=== PATIENT | female | born 1950 | race Caucasian/White ===

== ENCOUNTER 2016-09-06 09:39 | Outpatient (CLI) | payer MEDICARE, OTHER | END 2016-09-06 09:40 | disposition home or self-care (01) | DX: Z12.31 Encounter for screening mammogram for malignant neoplasm of breast (principal); Z98.82 Breast implant status ==

== ENCOUNTER 2016-09-06 09:43 | Outpatient (CLI) | payer MEDICARE, BC | END 2016-09-06 09:44 | disposition home or self-care (01) | DX: Z13.820 Encounter for screening for osteoporosis (principal); M85.89 Other specified disorders of bone density and structure, multiple sites ==

== ENCOUNTER 2016-09-14 07:47 | Outpatient (CLI) | payer MEDICARE, BC | END 2016-09-14 07:48 | disposition home or self-care (01) | DX: Z00.00 Encounter for general adult medical examination without abnormal findings (principal) ==

== ENCOUNTER 2017-01-03 08:14 | Day surgery (SDC) | payer MEDICARE, BC ==
[2017-01-03] MEDS ORDERED: LACTATED RINGERS 1,000 ML IV ONE (08:21)
[2017-01-03] MEDS ORDERED: MIDAZOLAM 2 MG/2 ML VIAL IVP ONE (08:58)
[2017-01-03] MEDS ORDERED: fentaNYL 100 MCG/2 ML VIAL IVP ONE (08:58)
[2017-01-03 09:57] VITALS: BP 101/70
== END 2017-01-03 08:15 | disposition home or self-care (01) ==
LOC: SDS 08:14
PROVIDERS: ATTEND Surgery
PROC: 0DBK8ZX Excision of Ascending Colon, Via Natural or Artificial Opening Endoscopic, Diagnostic (ICD-10-PCS; principal; 2017-01-03 09:15)
DX: Z12.11 Encounter for screening for malignant neoplasm of colon (principal); D12.2 Benign neoplasm of ascending colon; K57.90 Diverticulosis of intestine, part unspecified, without perforation or abscess without bleeding; Z79.82 Long term (current) use of aspirin
CPT/HCPCS: 45380; J7120

== ENCOUNTER 2018-02-26 10:28 | Outpatient (CLI) | payer MEDICARE, OTHER ==
--- NOTE | 2018-02-27 09:16 | Mammography Report ---
Reason: SCREENING MAMMO Procedure Date: 02/26/2018 Accession Number: [id number] / [id number] Procedure: MGN - Screening Mammo Dig w/Implants CPT Code: FULL RESULT: EXAM: Screening Mammo Dig w/Implants DATE: 02/26/2018 11:01 AM CLINICAL HISTORY: 67-year-old female with history of breast augmentation with saline implants. TECHNIQUE: Bilateral CC and MLO views were obtained. Implant displaced views were also obtained bilaterally in both projections. COMPARISON: 09/06/2016, 02/04/2015, 03/26/2013, 09/16/2011. FINDINGS: The breasts demonstrate heterogeneously dense fibroglandular parenchyma bilaterally. Bilateral retropectoral breast implants are again seen. No suspicious masses, clustered microcalcifications, or regions of architectural distortion are identified. IMPRESSION: Benign findings RECOMMENDATION: Routine annual screening unless otherwise clinically indicated. BIRADS CATEGORY 2: Benign findings STANDARD QUALIFYING STATEMENTS: 1. This examination was reviewed with the aid of Computer-Aided Detection (CAD). 2. A negative or benign imaging report should not delay biopsy if clinically suspicious findings are present. Consider surgical consultation if warrented. More than 5% of cancers are not identified by imaging. 3. Dense breasts may obscure an underlying neoplasm. 4. This examination was reviewed without the aid of 3D breast imaging (tomosynthesis).
== END 2018-02-26 10:29 | disposition home or self-care (01) ==
LOC: DI.N 10:28
DX: Z12.31 Encounter for screening mammogram for malignant neoplasm of breast (principal); Z98.82 Breast implant status
CPT/HCPCS: 77067

== ENCOUNTER 2019-01-29 10:47 | Outpatient (CLI) | payer MEDICARE, OTHER ==
--- NOTE | 2019-01-29 12:06 | XRAY Report ---
Reason: CHEST PAIN Procedure Date: 01/29/2019 Accession Number: [id number] / [id number] Procedure: WCP - Chest 2 View X-Ray CPT Code: 85540 FULL RESULT: EXAM: CHEST RADIOGRAPHY EXAM DATE: 01/29/2019 10:47 AM. CLINICAL HISTORY: CHEST PAIN. COMPARISON: None. TECHNIQUE: 2 views. FINDINGS: Lungs/Pleura: No significant abnormality. Tiny right basilar calcified granuloma. Lungs otherwise clear. Mediastinum: Heart and mediastinal contours are unremarkable. Other: None. IMPRESSION: 1. Old granulomatous disease. 2. Otherwise negative examination. RADIA
== END 2019-01-29 23:59 | disposition home or self-care (01) ==
LOC: DI.WCP 10:47 → EDSTATUS 12:33 → DI.WCP 23:59
PROVIDERS: ATTEND Physician Assistant Medical
DX: R07.89 Other chest pain (principal)
CPT/HCPCS: 71046

== ENCOUNTER 2022-10-25 10:27 | Outpatient (CLI) | payer MEDICARE, OTHER ==
--- NOTE | 2022-10-26 10:25 | Mammography Report ---
BILATERAL DIGITAL SCREENING MAMMOGRAM 3D/2D WITH AUGMENTATION: 10/25/2022 CLINICAL: Routine screening. Comparison is made to exams dated: 02/26/2018 mammogram, 09/06/2016 mammogram, 02/04/2015 mammogram - [facility], 03/26/2013 mammogram - [facility], 09/22/2011 [facility], and 09/16/2011 mammogram - [facility]. Both breasts are heterogeneously dense, which may obscure small masses (category c / 51-75% glandular tissue). Bilateral breast implants are present. No significant masses, calcifications, or other findings are seen in either breast. There has been no significant interval change. IMPRESSION: NEGATIVE There is no mammographic evidence of malignancy. A 1 year screening mammogram is recommended. Based on the Tyrer Cuzick model (a risk assessment model) the patients lifetime risk is 5.7% and her 10 year risk is 4.7%. According to the ACR, ACS, and NCCN guidelines, an annual breast MRI exam princess g with mammogram is recommended if the patients lifetime risk is 20% or greater. This exam was interpreted at Station ID: [id number]. NOTE: For mammograms, a report in lay terms will be sent to the patient. Approximately 15% of breast malignancies will not be visualized mammographically. In the management of a palpable breast mass, a negative mammogram must not discourage biopsy of a clinically suspicious lesion. Electronically Signed By: Michael mcbride/marcia:10/25/2022 20:16:31 letter sent: No_Letter ACR BI-RADS Category 1: Negative 3341F PARENCHYMAL PATTERN: (D) - The breast(s) demonstrate(s) heterogeneously dense fibroglandular parpola ma. BI-RADS CATEGORY: (1) - 1 Mammogram [id number] 1 year screening LATERALITY: (B)
== END 2022-10-25 10:28 | disposition home or self-care (01) ==
LOC: DI.N 10:27
DX: Z12.31 Encounter for screening mammogram for malignant neoplasm of breast (principal)

== ENCOUNTER 2022-11-23 09:38 | Outpatient (CLI) | payer MEDICARE, OTHER ==
--- NOTE | 2022-11-23 17:55 | DEXA Report ---
PROCEDURE: Dexa Spine and/or Hip INDICATIONS: POST MENOPAUSAL TECHNIQUE: Dual energy x-ray absorptiometry (DXA) was performed on a Syrmo System. Regions measur ed are the AP Spine, femoral neck, and if needed forearm. COMPARISON: 09/06/2016 FINDINGS: Lumbar Spine: Bone Mineral Density 0.881 g/cm/cm,T score -2.5. Previously -1.7 Left Femoral Neck: Bone Mineral Density 0.771 g/cm/cm, T score -1.9. Previously -1.5 Left Hip: Bone Mineral Density 0.841 g/cm/cm,T score -1.3. Previously -0.8 (T score greater or equal to -1.0: NORMAL) (T score from -1.1 to -2.4: OSTEOPENIA) (T score less than or equal to -2.5 to: OSTEOPOROSIS) Impression: By WHO criteria, this patient has osteopenia with decreasing mineralization of the spine and proximal left femur Patients with diagnosis of osteoporosis or osteopenia should have regular bone mineral density assess ment. For those eligible for Medicare, routine testing is allowed once every 2 years. Testing frequ ency can be increased for patients who have rapidly progressing disease or for those who are receivin g medical therapy to restore bone mass. Reviewed by: James Yen MD on 11/23/2022 4:53 PM [facility] Approved by: James Yen MD on 11/23/2022 4:53 PM [facility] Station ID: [id number]
== END 2022-11-23 09:39 | disposition home or self-care (01) ==
LOC: DI 09:38
PROVIDERS: ATTEND Physician Assistant Medical
DX: Z78.0 Asymptomatic menopausal state (principal); M85.80 Other specified disorders of bone density and structure, unspecified site

== ENCOUNTER 2024-02-07 12:11 | Observation (INO) ==
--- NOTE | 2024-02-07 12:03 | ED Physician Documentation ---
History of Present Illness Stated complaint Stated Complaint: VERTIGO Chief complaint Chief Complaint: Neuro Additonal information Additional information: 73-year-old female who denies substantial medical history presents with continuous vertigo. This started about 10 AM today. She has had vertigo and nausea and vomiting since then, with mild headache. She denies any recent head trauma. No visual changes. No current hearing changes, though she has chronic tinnitus bilaterally. She had a similar episode a few years ago that resolved quickly and was mild, and she did not see a doctor for this. No history of stroke or TIA. No blood thinners. No aspirin taken. No neck or chest or back or abdominal or flank pain, shortness of breath, syncope, palpitations, or other new concerns. No history of easy bleeding. No recent surgeries. Spouse arrived during my assessment and corroborates. I am immediately calling a code stroke on assessment of this patient. EMS brought patient and gave Zofran en route. Review of Systems ROS Constitutional: no fever, no chills Eyes: no visual disturbance, no discharge Ears, Nose, Mouth, Throat: no rhinorrhea, no sore throat Cardiovascular: no chest pain, no palpitations Respiratory: no cough, no shortness of breath Gastrointestinal: no abdominal pain, + vomiting, no diarrhea Genitourinary: no dysuria, no hematuria Musculoskeletal: no back pain, no neck stiffness Skin: no rash, no wound Neurological: no focal weakness, no focal numbness Meds/Allgy Home Medications Ambulatory Orders Medication Instructions Recorded Confirmed No Known Home Medications 02/07/24 02/07/24 Allergies Allergies Allergy/AdvReac Type Severity Reaction Status Date / Time Iodinated Contrast Media AdvReac Edema Verified 02/07/24 13:13 (Iodinated Contrast- Oral and IV Dye) REPLACED BY [facility] Medical History Medical History (Updated 02/07/24 @ 14:52 by Grayson Ruffin MD) No pertinent past medical history Surgical History Surgical History (Updated 02/07/24 @ 12:21 by Izabela Hodge, RN, BSN) No pertinent past surgical history Social History Social History (Updated 02/07/24 @ 12:21 by Izabela Hodge, SHELBIE, BSN) Smoking Status: Never smoker Do you dip or chew tobacco?: No Relationship: Do you feel safe in your home environment?: Yes Suffered physical, verbal, emotional, or financial abuse?: No Exam Exam Const: no acute distress though intermittently nauseous, prefers keeping eyes closed; non toxic appearing; remains pleasant Eyes: PERRLA, EOMI; left beating horizontal nystagmus however also faint torsional R sided nystagmus ENT: mucous membranes moist Neck: supple, non-tender Resp: no respiratory distress, clear to auscultation bilaterally Card: regular mild bradycardia, no murmurs Abd: non tender diffusely, no rigidity or rebound or guarding Back: no T or L spine tenderness, no CVA tenderness bilaterally Extrem: no deformities, no swelling bilateral lower etremities, 2+ distal pulses all extremities Neuro: ANOx4. country manager 2-12 intact; nystagmus noted above. Normal tone all extremities. Sensation intact to light touch all extremities. No ankle clonus bilaterally. 5/5 motor strength all extremities. Normal FNF BUE; normal heel- pendleton test BLE. Possible mild LUE pronator drift. No dysarthria. No neglect. Grossly normal cognition. Skin: no rash, warm and dry NIHSS is currently 0 Results Vitals Vitals: Vital Signs - 24 hr 02/07/24 12:12 02/07/24 13:05 Temperature 36.5 C Pulse Rate 58 L 56 L Respiratory Rate 15 17 Blood Pressure 143/78 H 132/61 H O2 Saturation 100 99 O2 Source Room air Room air Pain Intensity 0 Oxygen O2 Source Room air Labs Labs: Laboratory Tests 02/07/24 12:35 WBC 9.7 RBC 4.88 Hgb 14.4 Hct 42.3 MCV 86.7 MCH 29.5 MCHC 34.0 RDW 11.6 L Plt Count 253 MPV 9.1 Neut # (Auto) 7.9 H Lymph # (Auto) 1.2 L [place] # (Auto) 0.5 Eos # (Auto) 0.0 Baso # (Auto) 0.0 Absolute Nucleated RBC 0.00 Nucleated RBC % 0.0 PT 11.5 INR 1.1 APTT 19.0 L Sodium 138 Potassium 4.3 Chloride 104 Carbon Dioxide 24 Anion Gap 10.0 BUN 22 H Creatinine 0.9 Estimated GFR (MDRD) 61 L Glucose 135 H Calcium 9.7 Total Bilirubin 0.7 AST 18 ALT 14 Alkaline Phosphatase 66 Troponin I High Sens 11.9 Total Protein 6.7 Albumin 4.2 Globulin 2.5 Albumin/Globulin Ratio 1.7 PD Medical Decision Making ED course ED course: This patient presents with continuous vertigo that is concerning for possible acute ischemic stroke, though I have considered a broad differential including but not limited to hemorrhagic stroke, vascular dissection, BPPV, laryngitis, vertebrobasilar stenosis, migraine, among others. No chest pain. NIHSS is 0 but this does not target posterior strokes. I am immediately initiating code stroke workup, with CT head, CT head and neck, EKG, labs. I am giving fluids, Zofran, meclizine and will closely reassess. Neurology being consulted. Note patient notes possible contrast allergy; this does NOT appear anaphylactic per her history, and may in fact have been IV extravasation per her description, but due to uncertainty we will give Solumedrol/Bendaryl now while obtaining hCT, then return for CTA after this pretreatment. I spoke with Dr. Santana of [employer] [facility] at 1232, reviewing case; he will assess as well via robot. Radiologist called me and states hCT without acute findings. EKG normal sinus rhythm without acute ischemia or immediately concerning interval prolongation. CT: I agree with radiology reads of imaging on my independent review of imaging. hCT: "FINDINGS: Image quality: Excellent. CSF spaces: Basal cisterns are patent. No extra-axial fluid collections. Ventricles are normal in size and shape. Brain: No midline shift. No intracranial masses or hemorrhage. Lui-white matter interface is normal. Skull and face: Calvarium and visualized facial bones are intact, without suspicious lesions. Sinuses: Visualized sinuses and mastoids are clear. IMPRESSION: 1. No acute intracranial process. The above findings were discussed with Dr. Grayson Ruffin on 02/07/2024 at 12:50 PM This study fulfills neurological imaging criteria for inclusion or exclusion of acute stroke therapies based on available published neurological imaging guidelines. Reviewed by: Tara Hudson MD on 02/07/2024 12:51 PM PDT" Dr. Santana has also assessed patient in room. She has had CLEAR symptomatic improvement, and is now able to ambulate. Stroke is still possible, but both Neurologist and patient/family do NOT feel risk of TNK outweighs benefits at this time. I agree. We are giving full aspirin, statin, completing CTA, then antiicpate admit for MRI tomorrow and PT/OT as per Neurology recommendations. Labs: CBC reassuring, no leukocytosis, anemia or thrombocytopenia. INR WNL. PTT low. CBC, CMP reassuring. Troponin reassuring in clinical context. No chest pain. Patient remains stable, improved; given her clear improvement and minimal symptoms, I continue to agree risk of thrombolytics outweighs benefits at this, which patient/family also strongly feel. CTA head/neck: I agree with radiology read below "FINDINGS: Image quality: Diagnostic. HEAD CT: See CTA head report of 02/07/2024. HEAD CT ANGIOGRAPHY: Anterior circulation: Intracranial internal carotid arteries are normal in size and flow. The flow within the paired anterior cerebral arteries is normal and symmetric. The flow within the middle cerebral arteries is normal and symmetric. The anterior communicating artery is seen. No aneurysms are seen. Posterior circulation: Visualized portions of the vertebral arteries demonstrate normal caliber, and join to form a normal appearing basilar artery. Flow within the posterior cerebral arteries is normal and symmetric. No aneurysms are seen. NECK CT ANGIOGRAPHY: Carotid system: The great vessels demonstrate a conventional anatomy as they arise from the aortic arch. The origins of the common carotid arteries appear patent. The common carotid arteries demonstrate normal caliber and courses. The bifurcation regions are both widely patent. The internal carotid arteries demonstrate normal calibers and courses. Posterior circulation: The origins of the vertebral arteries both appear widely patent. The more superior extracranial portions of both vertebral arteries also demonstrate normal courses and calibers. They join to form a normal appearing basilar artery. Soft tissues: Visualized neck soft tissues demonstrate no suspicious abnormalities. Bones: No suspicious bony lesions. Visualized cervical spine appears normally aligned. IMPRESSION: No significant intracranial arterial abnormality is seen. No significant abnormality is seen within the arteries of the neck. The estimate of stenosis included in the report of the imaging study was calculated using the NASCET method Reviewed by: Tara Hudson MD on 02/07/2024 2:42 PM PDT" I spoke with Dr. Meza who kindly accepts patient on review of case with me. At this juncture, while stroke vs TIA is possible, peripheral vertigo that has improved is also possible. Given how concerning her initial presentation was, I and Neuro agree admission for MRI tomorrow, PT/PT and reassessment is reasonable. Admitting in stable condition. CRITICAL CARE TIME: outside of procedures, I spent 50 minutes assessing, reassessing, resuscitating this patient, speaking with family and consultants, and interpreting studies and documentation, in the setting of initial concern for stroke. 5 Discharge Plan Discharge Patient Disposition: 65 [facility] DC/Xfer Condition: Stable Clinical Impression: Dizziness Prescriptions: No Action No Known Home Medications Print Language: Hungarian
[2024-02-07] MEDS: MECLIZINE 12.5 MG TABLET PO STA (12:29)
[2024-02-07] MEDS: ONDANSETRON 4 MG/2 ML VIAL IVP STA (12:29)
[2024-02-07] MEDS: SODIUM CHLORIDE 0.9% 1,000 ML IV STA (12:29)
[2024-02-07 12:39] LABS: BASOPHILS % (AUTO) 0.3 %; EOSINOPHILS % (AUTO) 0.4 %; HCT - HEMATOCRIT 42.3 % (37.0-47.0); HGB - HEMOGLOBIN 14.4 g/dL (12.0-16.0); LYMPHOCYTES # (AUTO) 1.2 10^3/uL (1.5-3.5); LYMPHOCYTES % (AUTO) 12.5 %; MEAN CORPUSCULAR HEMOGLOBIN 29.5 pg (27.0-31.0); MEAN CORPUSCULAR VOLUME 86.7 fL (81.0-99.0); MEAN PLATELET VOLUME 9.1 fL (7.9-10.8); MONOCYTES # (AUTO) 0.5 10^3/uL (0.0-1.0); MONOCYTES % (AUTO) 4.7 %; NEUTROPHILS # (AUTO) 7.9 10^3/uL (1.5-6.6); NEUTROPHILS % (AUTO) 81.7 %; PLT - PLATELET COUNT 253 10^3/uL (130-450); RED BLOOD COUNT 4.88 10^6/uL (4.20-5.40); RED CELL DISTRIBUTION WIDTH 11.6 % (12.0-15.0); WHITE BLOOD COUNT 9.7 x10^3/uL (4.8-10.8)
--- NOTE | 2024-02-07 12:52 | CT Report ---
PROCEDURE: CT Head W/O Stroke Protocol INDICATIONS: vertigo, continuous, N/V TECHNIQUE: Noncontrast 4.5 mm thick angled axial sections acquired from the foramen magnum to the vertex, with c oronal reformats. For radiation dose reduction, the following was used: automated exposure control, adjustment of mA and/or kV according to patient size. COMPARISON: None. FINDINGS: Image quality: Excellent. CSF spaces: Basal cisterns are patent. No extra-axial fluid collections. Ventricles are normal in size and shape. Brain: No midline shift. No intracranial masses or hemorrhage. Lui-white matter interface is norm al. Skull and face: Calvarium and visualized facial bones are intact, without suspicious lesions. Sinuses: Visualized sinuses and mastoids are clear. IMPRESSION: 1. No acute intracranial process. The above findings were discussed with Dr. Grayson Ruffin on 02/07/2024 at 12:50 PM This study fulfills neurological imaging criteria for inclusion or exclusion of acute stroke therapie s based on available published neurological imaging guidelines. Reviewed by: Tara Hudson MD on 02/07/2024 12:51 PM PDT Approved by: Tara Hudson MD on 02/07/2024 12:51 PM PDT Station ID: [id number]
[2024-02-07] MEDS ORDERED: iohexoL-300 100 ML VIAL ONE (12:55)
[2024-02-07 12:56] LABS: ALBUMIN 4.2 g/dL (3.2-5.5); ALBUMIN/GLOBULIN RATIO 1.7 (1.0-2.2); BILIRUBIN,TOTAL 0.7 mg/dL (0.2-1.0); CALCIUM 9.7 mg/dL (8.5-10.3); CREATININE 0.9 mg/dL (0.6-1.3); POTASSIUM 4.3 mmol/L (3.5-4.5); TOTAL PROTEIN 6.7 g/dL (6.4-8.9)
[2024-02-07 13:01] LABS: TROPONIN I HIGH SENSITIVITY 11.9 ng/L (2.3-14.8)
[2024-02-07 13:02] LABS: INR 1.1 (0.8-1.2); PT - PROTHROMBIN TIME 11.5 secs (9.9-12.6)
[2024-02-07] MEDS: diphenhydrAMINE INJ 50 MG/ML VIAL IVP STA (13:06)
[2024-02-07] MEDS: methylPREDNISolone SUCCINATE 125 MG/2 ML VIAL IVP STA (13:06)
[2024-02-07] MEDS: ASPIRIN 325 MG TABLET PO STA (13:11)
[2024-02-07] MEDS: ATORVASTATIN 40 MG TABLET PO STA (13:13)
[2024-02-07] MEDS: iohexoL-300 100 ML VIAL IVP ONE (14:35)
--- NOTE | 2024-02-07 14:44 | CT Report ---
PROCEDURE: CT Angio Head/Neck INDICATIONS: stroke work up, continuous vertigo, N/V TECHNIQUE: After the administration of intravenous contrast, 1 mm thick sections acquired from the aortic arch t hrough the [place]. 3-dimensional phxyfmb-ymuwhrbky-sftcrnlmny (MIP) and/or volume renderin g reformats were acquired of the central intracranial vasculature and neck separately. For radiation dose reduction, the following was used: automated exposure control, adjustment of mA and/or kV acco rding to patient size. CONTRAST: 80ml [id number] COMPARISON: None. FINDINGS: Image quality: Diagnostic. HEAD CT: See CTA head report of 02/07/2024. HEAD CT ANGIOGRAPHY: Anterior circulation: Intracranial internal carotid arteries are normal in size and flow. The flow within the paired anterior cerebral arteries is normal and symmetric. The flow within the middle cer ebral arteries is normal and symmetric. The anterior communicating artery is seen. No aneurysms are seen. Posterior circulation: Visualized portions of the vertebral arteries demonstrate normal caliber, and join to form a normal appearing basilar artery. Flow within the posterior cerebral arteries is norm al and symmetric. No aneurysms are seen. NECK CT ANGIOGRAPHY: Carotid system: The great vessels demonstrate a conventional anatomy as they arise from the aortic a rch. The origins of the common carotid arteries appear patent. The common carotid arteries demonstr ate normal caliber and courses. The bifurcation regions are both widely patent. The internal caroti d arteries demonstrate normal calibers and courses. Posterior circulation: The origins of the vertebral arteries both appear widely patent. The more nichole perior extracranial portions of both vertebral arteries also demonstrate normal courses and calibers. They join to form a normal appearing basilar artery. Soft tissues: Visualized neck soft tissues demonstrate no suspicious abnormalities. Bones: No suspicious bony lesions. Visualized cervical spine appears normally aligned. IMPRESSION: No significant intracranial arterial abnormality is seen. No significant abnormality is seen within the arteries of the neck. The estimate of stenosis included in the report of the imaging study was calculated using the NASCET method Reviewed by: Tara Hudson MD on 02/07/2024 2:42 PM PDT Approved by: Tara Hudson MD on 02/07/2024 2:42 PM PDT Station ID: [id number]
--- NOTE | 2024-02-07 16:39 | HISTORY & PHYSICAL EXAMINATION ---
Chief Complaint Chief Complaint Chief Complaint: sudden onset of dizziness 10 am History of Present Illness Admitted From Admitted From:: Home History Obtained From Records Reviewed: [facility] History obtained from: Patient and Dr. Ruffin Exam Limitations: None History of Present Illness HPI Comment/Other: Presents with sudden onset of dizziness. Has a previous past medical history of dizziness 3 years ago that resolved on its own but much milder than this episode. Risk for stroke are negative for hyperlipidemia, smoking, diabetes, male sex or hypertension. It is positive for family history where her mom had a stroke and at age 82. She does have a history of eustachian tube dysfunction, occasional severe ringing of the ears and a loss of hearing but isn't deaf yet. She was getting clothes to donate into her car. As she closed the car door and started walking to the xm1 tank driver side and sat down, she realized that she was lightheaded and dizzy. She waited a moment to start the car and realized that she was getting increasingly nauseated with the dizziness. She slowly got out of the car and used it for balance to slowly get inside the house. Barely made it to the bed. As she laid there the dizziness was overwhelming and she began to vomit. She was so dizzy and lightheaded she could not even open her eyes and lay there in her vomit. She was able to call her on her phone to please come to the house, and he called an ambulance.She denies allergies, continuous vertigo. There are no focal complaints with this. No blurred vision. No loss of vision other than presbyopia. Does have a history of syncope. She recalls 2 episodes. The first was when she was in high school and suddenly leapt up to cheer on her team. She passed out. The second was being sick with the flu. She got up too fast, felt lightheaded and dizzy and then passed out. Has no history of seizures. Does not take any medications on a regular basis. She has had N/V with this episode and mild headache but no focal signs of dysphagia, dysesthesia, numbness of limbs. Dizziness lasted from about 1030 this morning till 2 PM and then abruptly stopped. Presented to the emergency room and temperature was 36.5. Heart rate 58. Respirations 15. O2 sat 100% on room air. Blood pressure 143/78. CT was ordered but the patient had a hx of reaction of edema to iodinated contrast and as such the CT was delayed slightly. CT of the head with angiogram did not have any acute intracranial process. She was being evaluated for TNK for stroke protocol because of the suddenness of symptoms and severity. Physical exam had horizontal nystagmus. Symptoms suddenly resolved. As such no TNK given. Telemetry stroke was consulted and they recommend the patient be placed in observation status to get an MRI and an echo and observe her rhythm. She is currently without symptoms. The emergency room provider and I discussed the case. I verified that symptoms are completely gone. We both discussed the fact that her vertebral arteries are negative on the CT angiogram. As such the differential diagnosis that I am generating is intermittent labrynthitis vs. Vasospasm of the vertebral arteries may be a possibility. I will be placing the patient under observation status. Meds/Allgy Home Medications Ambulatory Orders Medication Instructions Recorded Confirmed No Known Home Medications 02/07/24 02/07/24 Allergies Allergies Allergy/AdvReac Type Severity Reaction Status Date / Time Iodinated Contrast Media AdvReac Edema Verified 02/07/24 13:13 (Iodinated Contrast- Oral and IV Dye) PFSH Medical History Medical History (Updated 02/07/24 @ 18:31 by Merna Meza MD) Orthostatic syncope Surgical History Surgical History (Updated 02/07/24 @ 17:10 by Merna Meza MD) H/O colonoscopy Family History Family History (Updated 02/07/24 @ 18:48 by Merna Meza MD) Mother Diabetes CVA (cerebral vascular accident) Father Sister Well adult exam Son Well adult exam Daughter Well adult exam Other CAD (coronary artery disease) Social History Social History (Updated 02/07/24 @ 12:21 by Izabela Hodge, RN, BSN) Smoking Status: Never smoker Second hand tobacco smoke exposure: No Do you dip or chew tobacco?: No Do you vape?: No Relationship: Level: Assisted Do you feel safe in your home environment?: Yes Suffered physical, verbal, emotional, or financial abuse?: No POLST Patient has POLST: No POLST Status: DNR Review of Systems Constitutional Denies: Fatigue, Fever, Chills, Malaise, Weakness, Diaphoresis or Changes in appetite or eating habits Eyes Reports: Vision loss and Change in vision Ears, nose, mouth, and throat Reports: Ear pain, Hearing loss, Tinnitus and Vertigo; Denies: Throat swelling Cardiovascular Reports: lightheadedness; Denies: Irregular heart rate, chest pain, palpitations, edema, swelling of feet/ankles, Syncope, shortness of breath with exertion or Decreased exercise tolerance Respiratory Denies: Shortness of breath, Cough, Sputum production, Wheezing, Snoring, Pleuritic pain or Chest congestion Gastrointestinal Reports: Nausea and Vomiting; Denies: Abdominal pain, Abdominal distention, Change in bowel habits or Painful bowel movements Genitourinary Reports: Urinary urgency; Denies: Painful urination, Urinary frequency, Nocturia, Urinary incontinence, Blood in urine, Difficulty voiding, Genital itching or Vaginal dryness Musculoskeletal Reports: Extremity pain (left knee OA and right thumb tenosynovitis vs OA) Integumentary/Breast Denies: Rash, Skin tenderness, Skin swelling, Changing lesion, Changes in skin color or Breast pain Neurological Reports: General weakness, Lack of coordination, Dizziness, Vertigo and Memory problems (mild, will forget names but that's it); Denies: Focal weakness, Weakness in extremities, Numbness in extremities, Pre-existing deficit, Confusion, Slurred speech, Difficulty communicating thoughts or Seizure-like activity Psychiatric Denies: Depression, Anxiety, Mood swings, Panic attacks, Paranoia or Delusions Endocrine Denies: Excessive urination, Excessive thirst, Polyphagia, Fatigue or Cold intolerance Hematologic/Lymphatic Denies: Anemia, Easy bruising, Blood clots or Enlarged lymph nodes Allergic/Immunologic Denies: Hives, Throat swelling, Tongue swelling, Facial swelling, Wheezing or Itchy eyes Prior Level of Functionality: independent with activities of daily living. She still drives a car, pays bills, cleans house. 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 Lives in her own home with her . 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 Son is living nearby. Daughter lives in [place]. When they get too old to live by themselves they will move into an [place] at their daughter's property in [place]. She does not have a POLST form but would like to be DNR Conclusion/Plan Problem List (1) Dizziness: Plan: The dizziness is in the context of a patient who has orthostatic syncope by history, gradually decreasing hearing, increasing tinnitus, with no recent change in status. No recent hiking in high places, diving into a pool, URI, suggesting she may have had an abrupt labyrinthitis. Not viral. She is not suddenly worse with her hearing. In evaluating her for possible posterior inferior cerebellar artery stroke, her MRI is pending, and CT angiogram shows intact and open/normal vertebral arteries. Because of the physical exam findings in the ER where she did have nystagmus, telestroke is recommending placement in observation and I agree. I will order the MRI. Put her on mechatronics technologist her for overnight to make sure no atrial fibrillation. I have started her on aspirin and statin but I think she will not need this at discharge. If her workup is stable tomorrow I will be discharging her tomorrow. Lab Results Lab results reviewed: Yes 02/07/24 12:35 02/07/24 12:35 Diagnostic Imaging Results Diagnostic Imaging Results: positive Final report reviewed (CT of head and CT angiogram does not have any acute intracranial processes with normal arterial anatomy) EKG Results EKG Interpreted Independently: No EKG Comparison: Old EKG unavailable EKG Findings: Normal sinus rhythm Core Measures Anticipated LOS I expect patient to be DC'd or transferred within 96 hours.: Yes DVT/VTE - Prophylaxis VTE/DVT Device ordered at admit?: Yes Exam Exam Nourished, well-developed, well-groomed female who looks her stated age. Comfortable. Asking how to use the remote so that she can watch TV. Constitutional normal general appearance and no apparent distress HENMT normocephalic, head/scalp atraumatic, hearing grossly normal bilaterally, external ears normal and oral mucous membranes normal Eyes PERRL, EOMs intact bilaterally and conjunctivae normal Neck/C-Spine cervical full ROM noted and supple Lymph no lymphadenopathy noted Respiratory breath sounds equal bilaterally and normal respiratory effort Cardiovascular normal heart rate noted, regular rhythm noted, no gallop, no rub and no murmur Gastrointestinal abdomen normal to inspection, abdomen soft to palpation, nontender to palpation, nondistended and normoactive bowel sounds Genitourinary no CVA tenderness Extremities normal to inspection, normal to palpation, no tenderness and full ROM Neurology stripper opaquer II-XII intact, no focal motor deficit noted, speech normal and coordination normal Psychiatry mental status grossly normal, oriented x3, thought process normal, cooperative, affect normal, psychomotor activity normal and memory normal Skin skin color normal and no rash
[2024-02-07] MEDS ORDERED: ONDANSETRON ODT 4 MG TABLET TL PRN (16:45)
[2024-02-07] MEDS ORDERED: ACETAMINOPHEN 325 MG TABLET PO PRN (16:45)
[2024-02-07] MEDS ORDERED: SODIUM CHLORIDE FLUSH 0.9% 10 ML SYRINGE IVP PRN (16:45)
[2024-02-07] MEDS ORDERED: ONDANSETRON 4 MG/2 ML VIAL IVP PRN (16:45)
[2024-02-07] MEDS ORDERED: oxyCODONE 5 MG TABLET PO PRN (16:45)
--- NOTE | 2024-02-07 17:16 | PHARMACY PROGRESS NOTE ---
Best Possible Medication History Admit Date and Time: 02/07/24 [id number] Processed by: Pharmacy Medications reviewed in ED?: Yes Medication History completed: Yes Patient Interview: Completed [facility] Statement: As the person ultimately responsible for medication therapy, providers are able to order a medication from an existing home medication list in [facility] via the "Reconcile Routine" prior to Confirmation of that medication by sales support manager. Such practice is discouraged except when the physician, in their clinical judgment, deems that a medical need exists for a medication without regard to previous use.
--- NOTE | 2024-02-07 18:31 | MRI Report ---
PROCEDURE: MRI Brain WO INDICATIONS: tia TECHNIQUE: Noncontrast axial T1 spin echo, axial T2 fast spin echo, sagittal and axial FLAIR, coronal T2 fast sp in echo, axial gradient echo, axial diffusion and ADC through the brain. COMPARISON: Same-day CT FINDINGS: Image quality: Diagnostic CSF spaces: Basal cisterns are patent. Lateral ventricles are symmetric. Volume: Periventricular white matter signal abnormality is commonly seen with chronic microangiopathy . Volume loss is present. These findings are mild. Brain: No acute infarct identified on diffusion-weighted images. No intracranial hematoma on suscepti bility weighted images. No confluent area of parenchymal edema. Craniofacial structures: Craniofacial structures are unremarkable partially visualized. IMPRESSION: No acute infarct identified on brain MRI. Reviewed by: Martir Jacinto MD on 02/07/2024 6:29 PM PDT Approved by: Martir Jacinto MD on 02/07/2024 6:29 PM PDT Station ID: [id number]
[2024-02-08] MEDS: SODIUM CHLORIDE FLUSH 0.9% 10 ML SYRINGE IVP SCH (01:52)
[2024-02-08 05:54] LABS: CHOL/HDL RATIO 2.9 (<4.4); CHOLESTEROL 180 mg/dL; HDL CHOLESTEROL 62 mg/dL; LDL CHOLESTEROL,CALCULATED 105 mg/dL; LDL/HDL RATIO 1.7 (<4.4); TRIGLYCERIDES 64 mg/dL; VLDL CHOLESTEROL 13 mg/dL
[2024-02-08 07:35] VITALS: O2SAT 96
--- NOTE | 2024-02-08 09:18 | Discharge Summary ---
"Discharge Summary Admit Date: 02/07/24 Discharge Date: 02/08/24 Discharging Provider: Merna Meza MD Primary Care Provider: JOSUE Coleman Code Status: Do Not Attempt Resuscitation DIAGNOSES Admission Diagnoses: dizziness Discharge Diagnoses with Status of Each Condition: 1. symptoms of stroke 2. Labyrinthitis HPI History of Present Illness: Please see detailed history and physical. The patient is a very healthy woman who works out regularly, is completely independent. While getting in her car she had an abrupt onset of violent dizziness. She barely mated back to her house. Began vomiting with severe intense nausea. Every time she tried to get up or moves of violent dizziness would return. She called her on the phone and called 911. CT of head negative. CT angiogram negative. MRI of head negative. EKG with sinus bradycardia. Troponin negative. CONSULTS | PROCEDURES Procedures: As above in HPI HOSPITAL COURSE Hospital Course: The patient's dizziness abruptly resolved in the emergency room. However telestroke recommended that she be placed in observation overnight to look at her rhythm and make sure she was not going in and out of A-fib. This woman is in excellent physical shape and she has sinus bradycardia to 47 and 255. No episodes of A-fib. The last step of her workup would have included an echocardiogram but she had an important meeting to go to at noon. She promised that she would get the echo in the outpatient setting and asked that we discharge her earlier. As such she is discharged to see her primary care in follow-up ALLERGIES Allergies Allergy/AdvReac Type Severity Reaction Status Date / Time Iodinated Contrast Media AdvReac Edema Verified 02/07/24 13:13 (Iodinated Contrast- Oral and IV Dye) MEDICATIONS Ambulatory Orders Medication Instructions Recorded Confirmed No Known Home Medications 02/07/24 02/07/24 PHYSICAL EXAM AT DISCHARGE General Appearance: positive No acute distress and Other (thin, well-nourished well-developed) Eyes Bilateral: positive Normal inspection, PERRL and EOMI ENT: positive ENT inspection nml Neck: positive Nml inspection and No JVD; negative Carotid bruit Respiratory: positive No respiratory distress and Breath sounds nml Cardiovascular: positive Regular rate & rhythm and No murmur Peripheral Pulses: positive 2+ Abdomen: positive Non-tender, No organomegaly and Nml bowel sounds Extremities: positive Non-tender, Full ROM and Nml appearance Neurologic/Psychiatric: positive Oriented x3, CN's nml (2-12) and Motor nml Physical Exam Other/Comments: This document was made in part using voice recognition software. While efforts are made to proofread this document, sound alike and grammatical errors may occur. LABS 02/07/24 12:35 02/07/24 12:35 TIME SPENT Time Spent in Discharge (Minutes): 20 Discharge Plan Discharge Patient Disposition: 01 Home, Self Care Condition: Stable Medically Cleared Date:: 02/08/24 Prescriptions: No Action No Known Home Medications Diet: Regular Health Concerns: You presented a sudden onset of violent dizziness. You were barely able to make it back to your bedroom and even with laying in bed you had terrible nausea and vomiting. You felt absolutely miserable. You managed to call your who came home and called 911. In the ER you are having a severe dizzy episode with your eye movements showing us that you had severe nystagmus. Nystagmus is a response to severe dizziness. We were afraid you were having a back of brain stroke. We did a CT of the head, and angiogram of the head which is a dye study showing all your arteries, and an MRI of the head which is a very sensitive x- ray for any brain damage. All of these were negative. We then kept you overnight to make sure you were not having any arrhythmia such as atrial fibrillation. We only found you to have a very slow heart rate in the 40s and 50s but you explained to us that you are in excellent shape and workout frequently. Morning you feel normal. You would like to go home. Care Plan Goals: To not have recurrence of this dizziness Assessment: Patient is alert, oriented to person, place, time and situation. Dizziness has resolved since being in the ER. is at the bedside to hear instructions. Plan of Treatment: 1. Please see your primary care provider in follow-up, Lesly Garcia. 2. Please have JOSUE Garcia order an echocardiogram. It was the 1 last test you needed to do but you need to get to a meeting and prefer to do this in the outpatient setting 3. Because I think the problem is a vertigo or inner ear problem, I am not giving you medicines for stroke which would be aspirin and a cholesterol pill. Print Language: Irish Patient Instructions: Anatomy Inner Ear, Labyrinthitis Stand Alone Forms: PCP List Follow-up Care: Wendy Garcia PA-C [Provider Admit Priv/Credential] - (needs followup echo)"
[2024-02-08] MEDS: ASPIRIN 325 MG TABLET PO SCH (09:25)
== END 2024-02-08 09:35 | disposition home or self-care (01) ==
LOC: ED 12:11 → MS2 12:11
PROVIDERS: ADMIT Physician Assistant Medical; ATTEND Physician Assistant Medical
DX: H83.09 Labyrinthitis, unspecified ear; R00.1 Bradycardia, unspecified; R27.0 Ataxia, unspecified; Z82.3 Family history of stroke; H93.13 Tinnitus, bilateral; H55.00 Unspecified nystagmus; R42 Dizziness and giddiness; R11.2 Nausea with vomiting, unspecified; H91.90 Unspecified hearing loss, unspecified ear